=== PATIENT | male | born 1985 | race African-American/Black ===

== ENCOUNTER 2021-09-28 09:38 | Inpatient (IN) | payer OTHER ==
[2021-09-28 10:13] VITALS: BMI 25.5
[2021-09-28] MEDS ORDERED: DICYCLOMINE HCL 10 MG CAPSULE PO PRN (10:34)
[2021-09-28] MEDS ORDERED: MAGNESIUM CITRATE 300 ML BOTTLE PO PRN (10:34)
[2021-09-28] MEDS ORDERED: chlordiazePOXIDE HCL 25 MG CAPSULE PO PRN (10:34)
[2021-09-28] MEDS ORDERED: ONDANSETRON *ODT* 4 MG TABLET SL PRN (10:34)
[2021-09-28] MEDS ORDERED: IBUPROFEN 600 MG TABLET (FP) PO PRN (10:34)
[2021-09-28] MEDS ORDERED: BENZOCAINE/MENTHOL (CHLORASEPTIC ) LOZENGE MM PRN (10:34)
[2021-09-28] MEDS ORDERED: METHOCARBAMOL 500 MG TABLET PO PRN (10:34)
[2021-09-28] MEDS ORDERED: MAGNESIUM HYDROX 2400MG/30ML ORAL SUSPENSION 30 ML CUP PO PRN (10:34)
[2021-09-28] MEDS ORDERED: LOPERAMIDE HCL 2 MG CAPSULE PO PRN (10:34)
[2021-09-28] MEDS ORDERED: ACETAMINOPHEN 325 MG TABLET (FP) PO PRN ×2 (10:34)
[2021-09-28] MEDS ORDERED: MAG HYDROX/AL HYDROX/SIMETH 30 ML UNIT-DOSE CUP PO PRN (10:34)
[2021-09-28] MEDS ORDERED: BISMUTH SUBSALICYLATE 262 MG/15 ML BTL PO PRN (10:34)
[2021-09-28] MEDS ORDERED: IBUPROFEN 400 MG TABLET (FP) PO PRN (10:34)
[2021-09-28] MEDS ORDERED: cloNIDine HCL 0.1 MG TABLET ONE (11:29)
[2021-09-28] MEDS: chlordiazePOXIDE HCL 25 MG CAPSULE PO SCH ×3 (13:14→22:18)
[2021-09-28] MEDS: PRENATAL VITAMINS W/ FOLIC ACID TABLET (FP) PO SCH (13:14)
[2021-09-28 15:05] LABS: HEMATOCRIT 42.7 % (35.4-49); HEMOGLOBIN 14.4 GM/dL (11.7-16.9); MCH 28.8 pg (25.7-33.7); MCHC 33.6 g/dl (32.0-35.9); MEAN CELL VOLUME 85.7 fl (80-96); PLATELET COUNT 160 10^3/uL (134-434); RBC 4.99 M/mm3 (4.00-5.60); RDW 14.7 % (11.9-15.9); WHITE BLOOD COUNT 4.2 K/mm3 (4.0-10.0)
[2021-09-28 15:10] LABS: ALBUMIN 4.5 g/dl (3.4-5.0); CALCIUM 9.1 mg/dL (8.5-10.1)
[2021-09-28 15:11] LABS: BLOOD UREA NITROGEN 6.7 mg/dL (7-18)
[2021-09-28 15:13] LABS: CREATININE 0.9 mg/dL (0.55-1.3)
[2021-09-28 15:15] LABS: BILIRUBIN,TOTAL 0.7 mg/dL (0.2-1); TOT PROT 8.6 g/dl (6.4-8.2)
[2021-09-28] MEDS: hydrOXYzine PAMOATE 25 MG CAPSULE (FP) PO SCH ×3 (15:25→22:18)
[2021-09-28] MEDS: MELATONIN 5 MG TABLETS PO SCH (22:18)
[2021-09-28] MEDS: THIAMINE HCL 100 MG TABLET (FP) PO SCH (22:18)
[2021-09-29] MEDS: hydrOXYzine PAMOATE 25 MG CAPSULE (FP) PO SCH ×5 (05:34→22:54)
[2021-09-29] MEDS: chlordiazePOXIDE HCL 25 MG CAPSULE PO SCH ×4 (05:34→22:52)
[2021-09-29] MEDS: PRENATAL VITAMINS W/ FOLIC ACID TABLET (FP) PO SCH (10:35)
[2021-09-29] MEDS: LISINOPRIL 5 MG TABLET PO SCH (10:35)
[2021-09-29] MEDS: MELATONIN 5 MG TABLETS PO SCH (22:54)
[2021-09-29] MEDS: THIAMINE HCL 100 MG TABLET (FP) PO SCH (22:54)
[2021-09-30] MEDS: hydrOXYzine PAMOATE 25 MG CAPSULE (FP) PO SCH ×5 (05:41→22:20)
[2021-09-30] MEDS: chlordiazePOXIDE HCL 25 MG CAPSULE PO SCH ×4 (05:42→22:21)
[2021-09-30] MEDS: PRENATAL VITAMINS W/ FOLIC ACID TABLET (FP) PO SCH (10:24)
[2021-09-30] MEDS: LISINOPRIL 5 MG TABLET PO SCH (10:24)
[2021-09-30] MEDS: MELATONIN 5 MG TABLETS PO SCH (22:20)
[2021-09-30] MEDS: THIAMINE HCL 100 MG TABLET (FP) PO SCH (22:20)
[2021-10-01] MEDS ORDERED: chlordiazePOXIDE HCL 10 MG CAPSULE PO PRN
[2021-10-01] MEDS: hydrOXYzine PAMOATE 25 MG CAPSULE (FP) PO SCH ×5 (05:48→22:18)
[2021-10-01] MEDS: chlordiazePOXIDE HCL 10 MG CAPSULE PO SCH ×4 (05:48→22:18)
[2021-10-01] MEDS: PRENATAL VITAMINS W/ FOLIC ACID TABLET (FP) PO SCH (10:31)
[2021-10-01] MEDS: LISINOPRIL 5 MG TABLET PO SCH (10:31)
[2021-10-01] MEDS: THIAMINE HCL 100 MG TABLET (FP) PO SCH (22:18)
[2021-10-01] MEDS: MELATONIN 5 MG TABLETS PO SCH (22:18)
[2021-10-02] MEDS: chlordiazePOXIDE HCL 10 MG CAPSULE PO SCH ×2 (05:38→17:42)
[2021-10-02] MEDS: hydrOXYzine PAMOATE 25 MG CAPSULE (FP) PO SCH ×2 (05:38→10:16)
[2021-10-02] MEDS: LISINOPRIL 5 MG TABLET PO SCH (10:16)
[2021-10-02] MEDS: PRENATAL VITAMINS W/ FOLIC ACID TABLET (FP) PO SCH (10:16)
[2021-10-02] MEDS ORDERED: hydrOXYzine PAMOATE 25 MG CAPSULE (FP) PO PRN (12:02)
[2021-10-02] MEDS: MELATONIN 5 MG TABLETS PO SCH (22:17)
[2021-10-02] MEDS: THIAMINE HCL 100 MG TABLET (FP) PO SCH (22:17)
[2021-10-03] MEDS ORDERED: chlordiazePOXIDE HCL 10 MG CAPSULE PO ONE (05:00)
[2021-10-03 09:06] VITALS: TEMP 97.3
[2021-10-03] MEDS: LISINOPRIL 5 MG TABLET PO SCH (11:05)
[2021-10-03] MEDS: PRENATAL VITAMINS W/ FOLIC ACID TABLET (FP) PO SCH (11:05)
[2021-10-03 12:37] VITALS: BP 143/87; PULSE 95
== END 2021-10-03 15:25 | disposition home or self-care (01) | DRG 775 ==
LOC: YASAS 09:38 → Y3N 11:35
PROVIDERS: ADMIT Allergy & Immunology; ATTEND Surgery
PROC: HZ2ZZZZ Detoxification Services for Substance Abuse Treatment (ICD-10-PCS; principal; 2021-09-28)
DX: F10.230 Alcohol dependence with withdrawal, uncomplicated (principal); F12.20 Cannabis dependence, uncomplicated; F17.210 Nicotine dependence, cigarettes, uncomplicated; F41.9 Anxiety disorder, unspecified; I10 Essential (primary) hypertension
CPT/HCPCS: 36415; 80053; 85027; 86780; 87811; 93005; 93010; C9803-CS; Q0162; U0003; U0005

== ENCOUNTER 2024-09-26 12:53 | Inpatient (IN) | payer OTHER ==
[2024-09-26 13:41] VITALS: BMI 23.3
[2024-09-26] MEDS ORDERED: guaiFENesin 600 MG TABLET.ER (FP) PO PRN (13:48)
[2024-09-26] MEDS ORDERED: LOPERAMIDE HCL 2 MG CAPSULE PO PRN (13:48)
[2024-09-26] MEDS ORDERED: BENZOCAINE/MENTHOL (CHLORASEPTIC ) LOZENGE MM PRN (13:48)
[2024-09-26] MEDS ORDERED: BENZONATATE 200 MG CAPSULE PO PRN (13:48)
[2024-09-26] MEDS ORDERED: ONDANSETRON *ODT* 4 MG TABLET SL PRN (13:48)
[2024-09-26] MEDS ORDERED: MAG HYDROX/AL HYDROX/SIMETH 30 ML UNIT-DOSE CUP PO PRN (13:48)
[2024-09-26] MEDS ORDERED: DICYCLOMINE HCL 10 MG CAPSULE PO PRN (13:48)
[2024-09-26] MEDS ORDERED: BISMUTH SUBSALICYLATE 262 MG/15 ML BTL PO PRN (13:48)
[2024-09-26] MEDS ORDERED: MAGNESIUM HYDROX 2400MG/30ML ORAL SUSPENSION 30 ML CUP PO PRN (13:48)
[2024-09-26] MEDS ORDERED: POLYETHYLENE GLYCOL (HEALTHYLAX) 3350 17 GM PACKET PO PRN (13:48)
[2024-09-26] MEDS ORDERED: NALOXONE (NARCAN) HCL 4 MG/0.1 ML SPRAY NS PRN (13:48)
[2024-09-26] MEDS ORDERED: levETIRAcetam 500 MG TABLET (FP) PO ONE (14:25)
[2024-09-26] MEDS ORDERED: propRANOLol HCL 10 MG TABLET ONE (14:25)
[2024-09-26] MEDS: propRANOLol HCL 10 MG TABLET PO ONE (14:27)
[2024-09-26] MEDS: levETIRAcetam 500 MG TABLET (FP) PO SCH (14:27)
[2024-09-26] MEDS: hydrOXYzine PAMOATE 25 MG CAPSULE (FP) PO PRN (17:29)
[2024-09-26] MEDS: METHOCARBAMOL 500 MG TABLET PO PRN (17:29)
[2024-09-26] MEDS: IBUPROFEN 600 MG TABLET (FP) PO PRN (17:30)
[2024-09-26] MEDS: THIAMINE 100 MG TABLET PO SCH (22:22)
[2024-09-26] MEDS: MELATONIN 5 MG TABLETS PO SCH (22:22)
[2024-09-27] MEDS ORDERED: chlordiazePOXIDE HCL 25 MG CAPSULE PO PRN (09:27)
[2024-09-27] MEDS: PRENATAL VITAMINS W/ FOLIC ACID TABLET (FP) PO SCH (10:24)
[2024-09-27] MEDS: chlordiazePOXIDE HCL 25 MG CAPSULE PO SCH (10:24)
[2024-09-27] MEDS: ACETAMINOPHEN 325 MG TABLET (FP) PO PRN (10:25)
[2024-09-27 12:13] LABS: MCHC 31.8 g/dl (32.3-36.5); MEAN CELL VOLUME 87.3 fl (79.0-92.2); MEAN PLT VOLUME 11.7 fl (9.4-12.4); PLATELET COUNT 169 x10^3/uL (163-337); RDW 13.2 % (12.0-15.6)
[2024-09-27 12:18] LABS: POTASSIUM 4.3 mmol/L (3.5-5.1)
[2024-09-27 12:28] LABS: ALBUMIN 3.8 g/dl (3.4-5.0); BLOOD UREA NITROGEN 10.8 mg/dL (7-18); CALCIUM 10.3 mg/dL (8.5-10.1)
[2024-09-27 12:31] LABS: CREATININE 1.3 mg/dL (0.55-1.3)
[2024-09-27 12:33] LABS: BILIRUBIN,TOTAL 1.6 mg/dL (0.2-1)
[2024-09-27 12:38] LABS: TOT PROT 6.8 g/dl (6.4-8.2)
[2024-09-28] MEDS: AMOXICILLIN 500 MG CAPSULE (FP) PO SCH (15:54)
[2024-09-29] MEDS: chlordiazePOXIDE HCL 25 MG CAPSULE PO SCH (05:46)
[2024-09-30] MEDS ORDERED: chlordiazePOXIDE HCL 10 MG CAPSULE PO PRN
[2024-09-30] MEDS: chlordiazePOXIDE HCL 10 MG CAPSULE PO SCH (05:28)
[2024-09-30 20:59] VITALS: RESP 16
[2024-10-01] MEDS: chlordiazePOXIDE HCL 10 MG CAPSULE PO SCH (05:40)
[2024-10-01] MEDS: IBUPROFEN 400 MG TABLET (FP) PO PRN (05:49)
[2024-10-01 12:48] VITALS: BP 111/77; PULSE 83; TEMP 97.9
[2024-10-02] MEDS ORDERED: chlordiazePOXIDE HCL 10 MG CAPSULE PO ONE (05:00)
== END 2024-10-01 13:02 | disposition home or self-care (01) | DRG 775 ==
LOC: YASAS 12:53 → Y6N 13:57
PROVIDERS: ADMIT Allergy & Immunology; ATTEND Family Medicine Addiction Medicine
PROC: HZ2ZZZZ Detoxification Services for Substance Abuse Treatment (ICD-10-PCS; principal; 2024-09-26)
DX: F10.230 Alcohol dependence with withdrawal, uncomplicated (principal); F12.20 Cannabis dependence, uncomplicated; F19.282 Other psychoactive substance dependence with psychoactive substance-induced sleep disorder; F19.280 Other psychoactive substance dependence with psychoactive substance-induced anxiety disorder; F39 Unspecified mood [affective] disorder; F42.9 Obsessive-compulsive disorder, unspecified; G47.00 Insomnia, unspecified; I10 Essential (primary) hypertension; K08.89 Other specified disorders of teeth and supporting structures
CPT/HCPCS: 36415; 80053; 80307; 85027; 86780; 93005; 93010